=== PATIENT | female | born 1980 | race Caucasian/White ===

== ENCOUNTER 2017-12-09 06:21 | Emergency (ER) | payer OTHER ==
[~2017-12-09] VITALS: Ht 160 cm; Wt 80.7 kg
[~2017-12-09 06:21] MED LIST: AUGMENTIN 875875 MG PO; CIPROFLOXACIN500 M1 PO; EASY-LAX100 MG PO; FLOMAX0.4 MG PO; HYDROCODON-ACE1 EAC7 PO; HYDROCODONE-AP1 EAC6 PO; IBUPROFEN 600600 M1 PO; IBUPROFEN 800800 M1 PO; LEVSIN-SL0.125 MG SUBLING; MACROBID 100 M100 M2 PO; MIRALAX17 G1 PO; MOBIC7.5 MG PO; ONDANSETRON HCL4 M2 PO; PENICILLIN V P500 MG PO; PERCOCET PO; PYRIDIUM200 MG PO; Zofran PO
[2017-12-09] MEDS ORDERED: DOXYCYCLINE 10100 MG PO (07:09)
[2017-12-09 07:23] VITALS: BP 118/73
== END 2017-12-09 07:24 | disposition home or self-care (01) ==
LOC: M.ERS 06:21
DX: S60.222A Contusion of left hand, initial encounter (principal); Z87.442 Personal history of urinary calculi; Z88.8 Allergy status to other drugs, medicaments and biological substances; F31.9 Bipolar disorder, unspecified; Z88.6 Allergy status to analgesic agent; F17.210 Nicotine dependence, cigarettes, uncomplicated; X58.XXXA Exposure to other specified factors, initial encounter; Y93.89 Activity, other specified; Y92.89 Other specified places as the place of occurrence of the external cause; Y99.8 Other external cause status

== ENCOUNTER 2019-05-23 06:49 | Emergency (ER) | payer OTHER ==
[~2019-05-23] VITALS: Ht 162.6 cm; Wt 83.0 kg
[~2019-05-23 06:49] MED LIST changes: +DOXYCYCLINE 10100 MG PO
[2019-05-23 07:38] LABS: CALCIUM 9.2 mg/dL (8.5-10.1); CREATININE 0.7 mg/dL (0.6-1.3); POTASSIUM 3.5 mmol/L (3.5-5.1)
[2019-05-23 08:50] VITALS: BP 94/54
== END 2019-05-23 08:50 | disposition home or self-care (01) ==
LOC: M.ERS 06:49
PROVIDERS: Emergency Medicine Emergency Medical Services
DX: R51 Headache (principal); R11.0 Nausea; F17.210 Nicotine dependence, cigarettes, uncomplicated; F31.9 Bipolar disorder, unspecified; Z88.5 Allergy status to narcotic agent; Z90.710 Acquired absence of both cervix and uterus; Z87.442 Personal history of urinary calculi; Z98.51 Tubal ligation status

== ENCOUNTER 2019-06-29 18:25 | Emergency (ER) | payer OTHER ==
[~2019-06-29] VITALS: Ht 162.6 cm; Wt 86.2 kg
[2019-06-29 19:27] LABS: CALCIUM 9.2 mg/dL (8.5-10.1); CREATININE 0.8 mg/dL (0.6-1.3); POTASSIUM 3.6 mmol/L (3.5-5.1)
[2019-06-29 19:29] LABS: ABSOLUTE EOSINOPHILS 0.1 thou/uL (0.0-0.7); ABSOLUTE LYMPHOCYTES 1.7 thou/uL (0.8-5.3); ABSOLUTE NEUTROPHILS 15.2 thou/uL (1.6-8.1); BASOPHILS 0.2 %; EOSINOPHILS 0.7 %; HEMATOCRIT 44.2 % (37.0-47.0); LYMPHOCYTES 9.2 %; MCH 29.6 pg (26.0-34.0); MCHC 33.9 g/dL (28.0-37.0); MCV 87.2 fL (80.0-100.0); MONOCYTES 5.7 %; MPV 7.8 fl. (7.2-11.1); NUCLEATED RBCS 0 /100WBC; PLATELET COUNT* 251 thou/uL (150-400); POLYS 84.2 %; RBC 5.07 mil/uL (4.20-5.00); RDW-CV 13.3 % (10.5-14.5); WBC 18.1 thou/uL (4.0-11.0)
[2019-06-29] MEDS ORDERED: KEFLEX500 M1 PO (19:35)
[2019-06-29] MEDS ORDERED: BACTRIM DS TAB1 EACH PO (19:35)
[2019-06-29 20:23] LABS: URINE BILIRUBIN NEGATIVE (Negative); URINE BLOOD 2+ (Negative); URINE CLARITY CLEAR; URINE COLOR YELLOW; URINE GLUCOSE-RANDOM TRACE (Negative); URINE KETONES NEGATIVE (Negative); URINE LEUKOCYTES 1+ (Negative); URINE NITRITE POSITIVE (Negative); URINE PROTEIN TRACE (Negative); URINE UROBILINOGEN 0.2 E.U./dl (0.2-1.0)
[2019-06-29 20:33] LABS: AMP/METHAMP Negative (Negative); BARBITURATES Negative (Negative); BENZODIAZEPINES Negative (Negative); COCAINE Negative (Negative); METHADONE Negative (Negative); MUCUS >6 Heavy strn/LPF (None Seen); OPIATES Negative (Negative); PCP Negative (Negative); THC POSITIVE (Negative)
[2019-06-29 20:34] LABS: CASTS None Seen /LPF (None Seen); SQUAMOUS 4-10 Moderate /LPF (0-3)
[2019-06-29 20:35] LABS: BACTERIA >30 Many /HPF (None Seen); URINE WBC 0-5 Rare /HPF (0-5)
[2019-06-29 20:36] LABS: CRYSTALS None Seen /LPF (None Seen); URINE RBC 3-10 Few /HPF (0-2)
[2019-06-29 20:48] VITALS: BP 125/71
== END 2019-06-29 20:49 | disposition home or self-care (01) ==
LOC: M.ERS 18:25
PROVIDERS: Nurse Practitioner Psychiatric/Mental Health
DX: L02.416 Cutaneous abscess of left lower limb (principal); F17.210 Nicotine dependence, cigarettes, uncomplicated; F31.9 Bipolar disorder, unspecified; N80.9 Endometriosis, unspecified; Z88.6 Allergy status to analgesic agent; Z88.8 Allergy status to other drugs, medicaments and biological substances; Z87.442 Personal history of urinary calculi; Z90.710 Acquired absence of both cervix and uterus; Z90.49 Acquired absence of other specified parts of digestive tract